=== PATIENT | female | born 1990 | race Caucasian/White ===

== ENCOUNTER 2017-04-13 14:14 | Outpatient (CLI) | payer OTHER ==
--- NOTE | 2017-04-13 20:07 | MRI Report ---
EXAM: LEFT WRIST MRI WITHOUT CONTRAST EXAM DATE: 04/13/2017 03:09 PM. CLINICAL HISTORY: Left wrist pain. Swelling. COMPARISON: None. TECHNIQUE: Multiplanar, multisequence T1-weighted and fluid-sensitive sequences of the wrist without contrast. Other: None. FINDINGS: Bones: No fractures or subluxations. No marrow edema. No bone lesions. Cartilage: The articular cartilage is unremarkable. The triangular fibrocartilage complex is unremark able. Ligaments: The scapholunate and lunotriquetral ligaments are intact. The visualized other intrinsic, extrinsic and collateral ligaments are unremarkable. Tendons: There is mild tendinosis of the extensor carpi ulnaris tendon. The other visualized flexor a nd extensor tendons are unremarkable. Musculature: No edema or fatty atrophy. Other: The contents of the carpal tunnel, including the median nerve, are unremarkable. Guyons canal is unremarkable. No ganglion cysts. With midcarpal joint and extending out the ulnar side of that jamie int space is a lobulated soft tissue structure which in total measures 2.2 x 2.1 x 1.2 cm (series 501 , images 12 through 17; series 901, images 4 through 11; series 701, images 2 through 9). The dorsal portion of this structure is the palpable abnormality. It is heterogeneous increased T2 signal and is iso-to hypointense on T1-weighted imaging. The lesion is at the dorsal midcarpal joint at the level of the capitate and then it wraps dorsally to travel between the hamate and triquetrum to exit the ul grayson side of that joint space. The subcutaneous tissues are unremarkable. IMPRESSION: 1. Mild extensor carpi ulnaris tendinosis. 2. Heterogeneous soft tissue mass within the mid carpal joint. The differential diagnosis includes fo panda nodular synovitis, sarcoma, less likely giant cell tumor of the tendon sheath, and much less like ly an inflammatory arthropathy. Recommend MRI with contrast for further characterization. [facility] MUSCULOSKELETAL RADIOLOGY SECTION Referring Provider Line: [phone] SITE ID: [id number]
== END 2017-04-13 14:15 | disposition home or self-care (01) ==
LOC: DI 14:14
PROVIDERS: ATTEND Physician Assistant
DX: M67.932 Unspecified disorder of synovium and tendon, left forearm (principal); R22.32 Localized swelling, mass and lump, left upper limb